=== PATIENT | female | born 1950 | race Caucasian/White ===

== ENCOUNTER → 2017-08-31 | Outpatient (CLI) | payer OTHER | END | disposition home or self-care (01) | LOC: KCIC 11:13 | DX: S22.43XD Multiple fractures of ribs, bilateral, subsequent encounter for fracture with routine healing (principal); J98.11 Atelectasis; X58.XXXD Exposure to other specified factors, subsequent encounter | CPT/HCPCS: 71046; 71110 ==

== ENCOUNTER → 2018-03-09 | Outpatient (CLI) | payer BC ==
--- NOTE | 2018-03-09 16:25 | KCIC ---
3 view left knee study Clinical indications: Chronic left knee pain. FINDINGS: No acute fracture or dislocation or osteolytic process is evident. There is severe joint space narrowing and moderate spurring spurring and subchondral sclerosis of the medial tibiofemoral joint compartment. There is mild spurring and joint space narrowing of the lateral tibial femoral joint compartment. There is prominent spurring and moderate joint space narrowing of the patellofemoral joint compartment. IMPRESSION: Tricompartmental primary degenerative osteoarthritis of the left knee most severely involving the medial tibiofemoral joint compartment. Electronically signed by: Ashu Gomez MD (03/09/2018 4:22 PM) [facility]
== END | disposition home or self-care (01) ==
LOC: KCIC 12:59
PROVIDERS: ATTEND Family Medicine
DX: M17.12 Unilateral primary osteoarthritis, left knee (principal)
CPT/HCPCS: 73562

== ENCOUNTER → 2018-04-09 | Outpatient (CLI) | payer BC ==
[~2018-04-09] MED LIST: DICL100G18 TP; OMEP20TA8 PO
--- NOTE | 2018-04-09 09:46 | CARD ---
MR#: [id number] Date of Study: 04/09/2018 Ordering Physician: CHANDA KUMAR, Referring Physician: CHANDA KUMAR Tech: Glenna Bray ANDREA APPROVED REPORT EXAM: Two-dimensional and M-mode echocardiogram with Doppler and color Doppler. Other Information Quality : AverageHR: 70bpm Rhythm : NSR INDICATION Dyspnea 2D DIMENSIONS IVSd1.0 (0.7-1.1cm)Aortic Root(2D)3.0 (2.0-3.7cm) LVDd4.8 (3.9-5.9cm)LVOT Diameter2.0 (1.8-2.4cm) PWd1.0 (0.7-1.1cm)LVDs3.4 (2.5-4.0cm) FS (%) 28.0 %SV57.8 ml LVEF(%)54.1 (>50%) Aortic Valve AoV Peak Bill.144.8cm/sAoV VTI27.7cm AO Peak GR.8.4mmHgLVOT Peak Bill.123.8cm/s AO Mean GR.5mmHgAVA (VMAX)2.79cm2 JEFF (VTI)2.70cm2 Mitral Valve MV E Czyxdjwo35.2cm/sMV E Peak Gr.2mmHg MV DECEL [id number] A Ohqjijfq56.4cm/s MV E Mean Gr.1mmHgE/A Ratio0.5 MV A [id number] Pulmonary Valve PV Peak Sjeojmqf84.7cm/s Tricuspid Valve TR P. Tbvbhodn416xk/sRAP QHPWCRFH1ozQd TR Peak Gr.9pcQnKSBD22slRh LEFT VENTRICLE The left ventricle is normal size. There is normal left ventricular wall thickness. The left ventricu lar systolic function is normal. The Ejection Fraction is 55-60%. There is normal LV segmental wall m otion. Transmitral Doppler flow pattern is Grade I-abnormal relaxation pattern. RIGHT VENTRICLE The right ventricle is normal size. There is normal right ventricular wall thickness. The right ventr icular systolic function is normal. ATRIA The left atrium size is normal. The right atrium size is normal. The interatrial septum is intact wit h no evidence for an atrial septal defect or patent foramen ovale as noted on 2-D or Doppler imaging. AORTIC VALVE The aortic valve is thickened but opens well. Doppler and Color Flow revealed no significant aortic r egurgitation. There is no significant aortic valvular stenosis. MITRAL VALVE The mitral valve is normal in structure and function. There is no evidence of mitral valve prolapse. There is no mitral valve stenosis. Doppler and Color Flow revealed no mitral valve regurgitation note d. TRICUSPID VALVE The tricuspid valve is normal in structure and function. Doppler and Color Flow revealed trace tricus pid regurgitation. The PA pressure was estimated at 19 mmHg. There is no tricuspid valve prolapse or vegetation. There is no tricuspid valve stenosis. PULMONIC VALVE The pulmonary valve is normal in structure and function. Doppler and Color Flow revealed no pulmonic valvular regurgitation. There is no pulmonic valvular stenosis. GREAT VESSELS The aortic root is normal in size. The ascending aorta is normal in size. PERICARDIAL EFFUSION There is no evidence of significant pericardial effusion. Critical Notification Critical Value: No <Conclusion> The left ventricular systolic function is normal. The Ejection Fraction is 55-60%. There is normal LV segmental wall motion. Transmitral Doppler flow pattern is Grade I-abnormal relaxation pattern. Doppler and Color Flow revealed trace tricuspid regurgitation. The PA pressure was estimated at 19 mmHg. There is no evidence of significant pericardial effusion. Signed by : Chanda Kumar, Electronically Approved : 04/09/2018 09:44:35
== END | disposition home or self-care (01) ==
LOC: ECHO 08:10
PROVIDERS: ATTEND Internal Medicine Cardiovascular Disease
DX: R06.09 Other forms of dyspnea (principal); I50.30 Unspecified diastolic (congestive) heart failure
CPT/HCPCS: 93306

== ENCOUNTER 2020-01-24 11:16 | Emergency (ER) | payer BC, MEDICARE ==
[~2020-01-24] VITALS: Ht 162.6 cm; Wt 125.0 kg
[~2020-01-24 11:16] MED LIST changes: -DICL100G18 TP; +DICL100G54 TP
[2020-01-24] MEDS ORDERED: SERT50TA PO (12:24)
[2020-01-24] MEDS ORDERED: ATOR40TA59 PO (12:24)
[2020-01-24] MEDS ORDERED: VALS320T2 PO (12:27)
[2020-01-24] MEDS ORDERED: BACTRIM DS PO (12:27)
[2020-01-24 12:49] LABS: BASO % 0 % (0-3); EOS % 0 % (0-3); HEMATOCRIT 40.5 % (36.0-47.0); HEMOGLOBIN 13.5 g/dL (12.0-15.5); LYMPH # 0.5 x10^3/uL (1.0-4.8); LYMPH % 11 % (24-48); MEAN CORPUSCULAR HEMOGLOBIN 30 pg (25-35); MEAN CORPUSCULAR HGB CONC 33 g/dL (31-37); MEAN CORPUSCULAR VOLUME 90 fL (79-100); MONO # 0.3 x10^3/uL (0.0-1.1); MONO % 6 % (0-9); NEUT # 3.7 x10^3/uL (1.8-7.7); NEUT % 82 % (31-73); PLATELET COUNT 153 x10^3/uL (140-400); RED BLOOD COUNT 4.49 x10^6/uL (3.50-5.40); RED CELL DISTRIBUTION WIDTH 14.5 % (11.5-14.5); WHITE BLOOD COUNT 4.5 x10^3/uL (4.0-11.0)
--- NOTE | 2020-01-24 13:50 | RAD ---
CHEST AP ONLY History: Reason: COUGH / Spl. Instructions: / History: Comparison: August 31, 2017 Findings: Low lung volumes. Patchy left basilar opacities. No pleural effusion. No pneumothorax. Portable technique accentuates cardiac size. Bilateral glenohumeral DJD, left greater than right. Impression: 1. Low lung volumes with patchy left basilar opacity, may represent atelectasis or consolidation. If persistent clinical concern, PA and lateral view the chest can better assess. Electronically signed by: Andrey Reeder DO (01/24/2020 1:47 PM) [id number]
[2020-01-24 14:16] LABS: CALCIUM 8.4 mg/dL (8.5-10.1); CREATININE 0.8 mg/dL (0.6-1.0); GFR 71.5; POTASSIUM 3.6 mmol/L (3.5-5.1)
[2020-01-24 14:23] LABS: ALBUMIN 3.5 g/dL (3.4-5.0); TOTAL BILIRUBIN 0.3 mg/dL (0.2-1.0); TOTAL PROTEIN 6.9 g/dL (6.4-8.2)
[2020-01-24 14:30] LABS: BILIRUBIN,URINE NEGATIVE (NEG); CLARITY,URINE CLOUDY; COLOR,URINE YELLOW; NITRITE,URINE NEGATIVE (NEG); PH,URINE 7.5 (<5.0-8.0); PROTEIN,URINE NEGATIVE (NEG-TRACE)
[2020-01-24 14:46] LABS: BACTERIA,URINE FEW /HPF (0-FEW); SQUAMOUS EPITHELIAL CELL,UR FEW /LPF
[2020-01-24] MEDS ORDERED: IV NORMAL SALINE 1000ML BAG 1,000 ML IV ONE (15:00)
[2020-01-24] MEDS ORDERED: ONDA4TAB7 PO (15:32)
--- NOTE | 2020-01-24 15:32 | PHYS DOC ---
Past Medical History Past Medical History: Depression, High Cholesterol, Hypertension Smoking Status: Never Smoker Alcohol Use: None General Adult EDM: Chief Complaint: ABDOMINAL PAIN HPI: HPI: Patient is a 69 year old female who presented to ER today for evaluation of cough congestion nausea vomiting and diarrhea for about 5 days. Patient was seen by her family doctor yesterday, COVID-19 test was performed but the result was not available yet. Patient denies any fever. Patient denies any abdominal pain. Patient denies being exposed to anybody who tested positive for COVID-19. Patient denies any blood in her stool. Patient denies any chest pain, no trouble breathing. Review of Systems: Review of Systems: Constitutional: Denies fever or chills. [] Eyes: Denies change in visual acuity. [] HENT: Denies nasal congestion or sore throat. [] Respiratory: Positive for cough, no trouble breathing. Cardiovascular: Denies chest pain or edema. [] GI: Positive for nausea vomiting diarrhea, no abdominal pain : Denies dysuria. [] Musculoskeletal: Denies back pain or joint pain. [] Integument: Denies rash. [] Neurologic: Denies headache, focal weakness or sensory changes. [] Endocrine: Denies polyuria or polydipsia. [] Lymphatic: Denies swollen glands. [] Psychiatric: Denies depression or anxiety. [] Heart Score: Risk Factors: Risk Factors: DM, Current or recent (<one month) smoker, HTN, HLP, family history of CAD, obesity. Risk Scores: Score 0 - 3: 2.5% MACE over next 6 weeks - Discharge Home Score 4 - 6: 20.3% MACE over next 6 weeks - Admit for Clinical Observation Score 7 - 10: 72.7% MACE over next 6 weeks - Early Invasive Strategies Allergies: Allergies: Allergies Coded Allergies Type Severity Reaction Last Updated Verified naproxen Allergy Intermediate ITCH, NEAR SYNCOPE 04/05/18 No tramadol Allergy Intermediate ITCH/RASH 04/05/18 Yes metronidazole Allergy Mild STOMACH UPSET 04/05/18 No sucralfate Allergy Mild ITCH, RASH 04/05/18 No acetaminophen Adverse Reaction Mild Nausea 04/05/18 Yes Uncoded Allergies Type Severity Reaction Last Updated Verified DARK CHOCOLATE Allergy Mild ITCH, NEAR SYNCOPE 04/05/18 Physical Exam: PE: Constitutional: Well developed, well nourished, no acute distress, non-toxic appearance. [] HENT: Normocephalic, atraumatic, bilateral external ears normal, oropharynx moist, no oral exudates, nose normal. [] Eyes: PERRLA, EOMI, conjunctiva normal, no discharge. [] Neck: Normal range of motion, no tenderness, supple, no stridor. [] Cardiovascular:Heart rate regular rhythm, no murmur [] Lungs & Thorax: Bilateral breath sounds clear to auscultation [] Abdomen: Bowel sounds normal, soft, no tenderness, no masses, no pulsatile mas ses. [] Skin: Warm, dry, no erythema, no rash. [] Back: No tenderness, no CVA tenderness. [] Extremities: No tenderness, no cyanosis, no clubbing, ROM intact, no edema. [] Neurologic: Alert and oriented X 3, normal motor function, normal sensory function, no focal deficits noted. [] Psychologic: Affect normal, judgement normal, mood normal. [] Current Patient Data: Labs: Laboratory Tests Test 01/24/20 12:40 01/24/20 13:45 01/24/20 14:25 White Blood Count 4.5 x10^3/uL (4.0-11.0) Red Blood Count 4.49 x10^6/uL (3.50-5.40) Hemoglobin 13.5 g/dL (12.0-15.5) Hematocrit 40.5 % (36.0-47.0) Mean Corpuscular Volume 90 fL (79-100) Mean Corpuscular Hemoglobin 30 pg (25-35) Mean Corpuscular Hemoglobin Concent 33 g/dL (31-37) Red Cell Distribution Width 14.5 % (11.5-14.5) Platelet Count 153 x10^3/uL (140-400) Neutrophils (%) (Auto) 82 % (31-73) H Lymphocytes (%) (Auto) 11 % (24-48) L Monocytes (%) (Auto) 6 % (0-9) Eosinophils (%) (Auto) 0 % (0-3) Basophils (%) (Auto) 0 % (0-3) Neutrophils # (Auto) 3.7 x10^3/uL (1.8-7.7) Lymphocytes # (Auto) 0.5 x10^3/uL (1.0-4.8) L Monocytes # (Auto) 0.3 x10^3/uL (0.0-1.1) Eosinophils # (Auto) 0.0 x10^3/uL (0.0-0.7) Basophils # (Auto) 0.0 x10^3/uL (0.0-0.2) Sodium Level 139 mmol/L (136-145) Potassium Level 3.6 mmol/L (3.5-5.1) Chloride Level 104 mmol/L (98-107) Carbon Dioxide Level 27 mmol/L (21-32) Anion Gap 8 (6-14) Blood Urea Nitrogen 14 mg/dL (7-20) Creatinine 0.8 mg/dL (0.6-1.0) Estimated GFR (Cockcroft-Gault) 71.5 BUN/Creatinine Ratio 18 (6-20) Glucose Level 95 mg/dL (70-99) Calcium Level 8.4 mg/dL (8.5-10.1) L Total Bilirubin 0.3 mg/dL (0.2-1.0) Aspartate Amino Transferase (AST) 20 U/L (15-37) Alanine Aminotransferase (ALT) 25 U/L (14-59) Alkaline Phosphatase 119 U/L (46-116) H Total Protein 6.9 g/dL (6.4-8.2) Albumin 3.5 g/dL (3.4-5.0) Albumin/Globulin Ratio 1.0 (1.0-1.7) Lipase 128 U/L (73-393) Urine Collection Type Void Urine Color Yellow Urine Clarity Cloudy Urine pH 7.5 (<5.0-8.0) Urine Specific [place] 1.010 (1.000-1.030) Urine Protein Negative mg/dL (NEG-TRACE) Urine Glucose (UA) Negative mg/dL (NEG) Urine Ketones (Stick) 15 mg/dL (NEG) Urine Blood Trace (NEG) Urine Nitrite Negative (NEG) Urine Bilirubin Negative (NEG) Urine Urobilinogen Dipstick 1.0 mg/dL (0.2 mg/dL) Urine Leukocyte Esterase Trace (NEG) Urine RBC 6-10 /HPF (0-2) Urine WBC 5-10 /HPF (0-4) Urine Squamous Epithelial Cells Few /LPF Urine Bacteria Few /HPF (0-FEW) Urine Mucus Slight /LPF Laboratory Tests 01/24/20 12:40 Laboratory Tests 01/24/20 13:45 Vital Signs: Vital Signs Date Time Temp Pulse Resp B/P (MAP) Pulse Ox O2 Delivery O2 Flow Rate FiO2 01/24/20 12:10 98.0 82 11 145/73 (97) 96 Room Air 98.0 EKG: EKG: [] Radiology/Procedures: Radiology/Procedures: [][facility] [address] [place] [address] IMAGING REPORT Signed PATIENT: MICHAEL AKBAR ACCOUNT: [id number] : 1950 LOCATION: ER AGE: 69 SEX: F EXAM STATUS: REG ER ORD. PHYSICIAN: DEWAYNE ANNE DO REASON: COUGH PROCEDURE: CHEST AP ONLY CHEST AP ONLY History: Reason: COUGH / Spl. Instructions: / History: Comparison: August 31, 2017 Findings: Low lung volumes. Patchy left basilar opacities. No pleural effusion. No pneumothorax. Portable technique accentuates cardiac size. Bilateral glenohumeral DJD, left greater than right. Impression: 1. Low lung volumes with patchy left basilar opacity, may represent atelectasis or consolidation. If persistent clinical concern, PA and lateral view the chest can better assess. Electronically signed by: Andrey Reeder DO (01/24/2020 1:47 PM) [id number] DICTATED and SIGNED BY: ANDREY REEDER DO DATE: 01/24/20 1347 Course & Med Decision Making: Course & Med Decision Making Pertinent Labs and Imaging studies reviewed. (See chart for details) Patient is a 69-year-old female who was evaluated in the ER due to nausea vomiting, cough. Patient already had COVID-19 tests yesterday, result is p ending at this time. Patient will be discharged home, she was instructed to quarantine herself at home until she hears back from her doctor about her lab results. Patient was given information about Covic 19 infection. Dragon Disclaimer: Dragon Disclaimer: This electronic medical record was generated, in whole or in part, using a voice recognition dictation system. Departure Departure Impression: Primary Impression: Nausea & vomiting Additional Impression: Viral syndrome Disposition: HOME, SELF-CARE Condition: IMPROVED Referrals: ALEKS FREGOSO MD (PCP) please follow up with your doctor this week Patient Instructions: Nausea and Vomiting Additional Instructions: Thank you for visiting our Emergency Department. We appreciate you trusting us with your care. If any additional problems come up don't hesitate to return to visit us. Please follow up with your primary care provider so they can plan additional care if needed and know about the problem that you had. If symptoms worsen come back to the Emergency Department. Any concerning symptoms that start such as chest pain, shortness of air, weakness or numbness on one side of the body, running high fevers or any other concerning symptoms return to the ER. Scripts Ondansetron Hcl (ZOFRAN) 4 Mg Tablet 1 TAB PO Q6HRS PRN for NAUSEA, #20 TAB Prov: DEWAYNE ANNE DO 01/24/20 Justicifation of Admission Dx: Justifications for Admission: Justification of Admission Dx: N/A DEWAYNE ANNE DO Jan 24, 2020 15:32
[2020-01-24 15:35] VITALS: BP 155/80
[2020-01-25] MEDS ORDERED: GABA600T7 PO (05:46)
== END 2020-01-24 15:57 | disposition home or self-care (01) ==
LOC: ER 11:16
DX: B34.9 Viral infection, unspecified (principal); R11.2 Nausea with vomiting, unspecified; R19.7 Diarrhea, unspecified; R05 Cough; R09.81 Nasal congestion; E78.00 Pure hypercholesterolemia, unspecified; F32.9 Major depressive disorder, single episode, unspecified; I10 Essential (primary) hypertension; Z88.8 Allergy status to other drugs, medicaments and biological substances; Z91.018 Allergy to other foods
CPT/HCPCS: 36415; 71045; 80053; 81001; 83690; 85025; 87086; 96360; 99285; J7030

== ENCOUNTER 2020-01-24 23:02 | Inpatient (IN) | payer MEDICARE ==
[~2020-01-24] VITALS: Ht 162.6 cm; Wt 124.5 kg
[~2020-01-24 23:02] MED LIST changes: +ATOR40TA59 PO; +BACTRIM DS PO; +ONDA4TAB7 PO; +SERT50TA PO; +VALS320T2 PO
--- NOTE | 2020-01-25 00:41 | PHYS DOC ---
Past Medical History Past Medical History: Depression, High Cholesterol, Hypertension Smoking Status: Never Smoker Alcohol Use: None General Adult EDM: Chief Complaint: ABDOMINAL PAIN HPI: HPI: Patient is a 69 year old female who was seen in the ER on 01/23 for similar symptoms. Re-presents this evening with continued nausea vomiting and had diarrhea in her bed. Patient has been sick since and has had a cough without shortness of breath she does complain of myalgias but no fever or chills. Patient has had multiple episodes of nausea vomiting and diarrhea which continue. Patient saw her doctor who did a outpatient COVID-19 test and the results are pending. Patient was found to have UTI and started on Bactrim. Patient now endorsing nonradiating left sided abdominal pain. Pain is decided is moderate and worse with palpation. Review of Systems: Review of Systems: Constitutional: Denies fever or chills. [] Eyes: Denies change in visual acuity. [] HENT: Denies nasal congestion or sore throat. [] Respiratory: Complains of cough [] Cardiovascular: Denies chest pain or edema. [] GI: Complains of abdominal pain, nausea, vomiting, diarrhea : Denies dysuria. [] Musculoskeletal: Complains of diffuse myalgias Integument: Denies rash. [] Neurologic: Denies headache, focal weakness or sensory changes. But has generalized weakness Endocrine: Denies polyuria or polydipsia. [] Lymphatic: Denies swollen glands. [] Psychiatric: Denies depression or anxiety. [] Heart Score: Risk Factors: Risk Factors: DM, Current or recent (<one month) smoker, HTN, HLP, family history of CAD, obesity. Risk Scores: Score 0 - 3: 2.5% MACE over next 6 weeks - Discharge Home Score 4 - 6: 20.3% MACE over next 6 weeks - Admit for Clinical Observation Score 7 - 10: 72.7% MACE over next 6 weeks - Early Invasive Strategies Current Medications: Current Medications Medications (Trade) Dose Ordered Sig/Haley Start Time Stop Time Status Last Admin Dose Admin Ondansetron HCl (Zofran) 4 mg 1X ONCE 01/25/20 01:00 01/25/20 01:01 Sodium Chloride 1,000 ml @ 1,000 mls/hr Q1H 01/25/20 01:00 01/25/20 01:59 Allergies: Allergies: Allergies Coded Allergies Type Severity Reaction Last Updated Verified chocolate flavor Allergy Intermediate ITCH, NEAR SYNCOPE 01/25/20 Yes naproxen Allergy Intermediate ITCH, NEAR SYNCOPE 04/05/18 No tramadol Allergy Intermediate ITCH/RASH 04/05/18 Yes metronidazole Allergy Mild STOMACH UPSET 04/05/18 No sucralfate Allergy Mild ITCH, RASH 04/05/18 No acetaminophen Adverse Reaction Mild Nausea 04/05/18 Yes Physical Exam: PE: Constitutional: Well developed, well nourished, mild distress HENT: Normocephalic, atraumatic, bilateral external ears normal, no trismus nose normal. [] Eyes: PERRLA, EOMI, conjunctiva normal, no discharge. [] Neck: Normal range of motion, no tenderness, supple, no stridor. [] Cardiovascular:Heart rate regular rhythm, Lungs & Thorax: No respiratory distress Abdomen: Abdomen soft with no distention mild tenderness on the left side without guarding or rebound no pulsatile masses Skin: Warm, dry, no erythema, no rash. [] Back: No tenderness, no CVA tenderness. [] Extremities: No tenderness, no cyanosis, no clubbing, ROM intact, no edema. [] Neurologic: Alert and oriented X 3, normal motor function, normal sensory function, no focal deficits noted. [] Psychologic: Anxious Current Patient Data: Labs: Laboratory Tests Test 01/25/20 01:35 01/25/20 03:30 White Blood Count 4.8 x10^3/uL Red Blood Count 4.51 x10^6/uL Hemoglobin 13.7 g/dL Hematocrit 40.9 % Mean Corpuscular Volume 91 fL Mean Corpuscular Hemoglobin 30 pg Mean Corpuscular Hemoglobin Concent 33 g/dL Red Cell Distribution Width 14.6 % Platelet Count 159 x10^3/uL Neutrophils (%) (Auto) 76 % Lymphocytes (%) (Auto) 15 % Monocytes (%) (Auto) 8 % Eosinophils (%) (Auto) 1 % Basophils (%) (Auto) 0 % Neutrophils # (Auto) 3.6 x10^3/uL Lymphocytes # (Auto) 0.7 x10^3/uL Monocytes # (Auto) 0.4 x10^3/uL Eosinophils # (Auto) 0.0 x10^3/uL Basophils # (Auto) 0.0 x10^3/uL Sodium Level 140 mmol/L Potassium Level 3.9 mmol/L Chloride Level 103 mmol/L Carbon Dioxide Level 25 mmol/L Anion Gap 12 Blood Urea Nitrogen 17 mg/dL Creatinine 0.9 mg/dL Estimated GFR (Cockcroft-Gault) 62.5 BUN/Creatinine Ratio 19 Glucose Level 109 mg/dL Calcium Level 8.8 mg/dL Total Bilirubin 0.2 mg/dL Aspartate Amino Transf (AST/SGOT) 24 U/L Alanine Aminotransferase (ALT/SGPT) 25 U/L Alkaline Phosphatase 122 U/L Total Protein 7.1 g/dL Albumin 3.6 g/dL Albumin/Globulin Ratio 1.0 Lipase 141 U/L Urine Collection Type U cath Urine Color Yellow Urine Clarity Clear Urine pH 7.0 Urine Specific [place] >=1.030 Urine Protein Negative mg/dL Urine Glucose (UA) Negative mg/dL Urine Ketones (Stick) 15 mg/dL Urine Blood Negative Urine Nitrite Negative Urine Bilirubin Negative Urine Urobilinogen Dipstick 1.0 mg/dL Urine Leukocyte Esterase Negative Urine RBC 0 /HPF Urine WBC Occ /HPF Urine Squamous Epithelial Cells Occ /LPF Urine Bacteria 0 /HPF Urine Mucus Slight /LPF Current Medications Medications (Trade) Dose Ordered Sig/Haley Route PRN Reason Start Time Stop Time Status Last Admin Dose Admin Sodium Chloride 1,000 ml @ 1,000 mls/hr Q1H IV 01/25/20 01:00 01/25/20 01:59 DC 01/25/20 03:38 Ondansetron HCl (Zofran) 4 mg 1X ONCE IVP 01/25/20 01:00 01/25/20 01:01 DC 01/25/20 01:39 Iohexol (Omnipaque 300 Mg/ml) 75 ml 1X ONCE IV 01/25/20 01:30 01/25/20 01:31 DC 01/25/20 01:52 Info (CONTRAST GIVEN -- Rx MONITORING) 1 each PRN DAILY PRN MC SEE COMMENTS 01/25/20 01:15 01/27/20 01:14 Vital Signs: Vital Signs Date Time Temp Pulse Resp B/P (MAP) Pulse Ox O2 Delivery O2 Flow Rate FiO2 01/24/20 23:15 98.2 89 20 142/64 (90) 97 Room Air 98.2 EKG: EKG: [] Radiology/Procedures: Radiology/Procedures: [][facility] [address] [place] [address] IMAGING REPORT Signed PATIENT: MICHAEL AKBAR ACCOUNT: [id number] : 1950 LOCATION: ER AGE: 69 SEX: F EXAM STATUS: REG ER ORD. PHYSICIAN: ABIEL HDZ MD REASON: ABD PAIN PROCEDURE: CT ABD PELV W/ IV CONTRST ONLY EXAM: CT Abdomen and Pelvis with IV contrast INDICATION: Reason: ABD PAIN / Spl. Instructions: COVID PRECAUTIONS / History: TECHNIQUE: Multi-detector row CT images were acquired from the lung bases through the abdomen and pelvis with the use of IV contrast. Sagittal and coronal images were acquired from the transaxial data. All CT scans performed at this facility utilize dose optimization techniques as appropriate to the exam, including the following: Automated exposure control and adjustment of the mA and/or KV according to patient size (this includes techniques or standardized protocols for targeted exams where dose is indication/reason for exam). IV CONTRAST: Administered ORAL CONTRAST: Not administered COMPARISON: None FINDINGS: LOWER CHEST: Moderate hiatal hernia. Patchy groundglass opacities in the lower lobes bilaterally LIVER: Unremarkable BILIARY SYSTEM: Gallbladder contains a noncalcified 3 cm stone near the fundus.. Bile ducts are not dilated. PANCREAS: Unremarkable SPLEEN: Unremarkable ADRENALS: Unremarkable KIDNEYS & URETERS: Unremarkable BLADDER: Unremarkable REPRODUCTIVE ORGANS: 2.6 cm calcified fibroid in the right uterine fundus. GASTROINTESTINAL: Hiatal hernia and scattered colonic diverticuli. Otherwise the stomach, small bowel, and colon are unremarkable. The appendix is normal. MESENTERY/PERITONEUM/RETROPERITONEUM: Unremarkable VASCULAR: Unremarkable LYMPH NODES: No adenopathy OSSEOUS & SOFT TISSUES: No acute or aggressive appearing osseous lesions. Anterolisthesis at L4-L5 likely results in some moderate degree of central canal and bilateral foraminal stenosis. IMPRESSION: 1. Patchy groundglass opacities in the lower lobes could reflect atypical pneumonia in the appropriate clinical context. 2. Gallbladder contains a 3 cm calcified stone. Correlate for any evidence of acute cholecystitis. 3. Moderate size hiatal hernia. 4. Otherwise no acute findings in the abdomen or pelvis on contrast enhanced CT. Electronically signed by: Stacey Camacho MD (01/25/2020 2:15 AM) [facility] DICTATED and SIGNED BY: STACEY CAMACHO MD DATE: 01/25/20214 Course & Med Decision Making: Course & Med Decision Making Pertinent Labs and Imaging studies reviewed. (See chart for details) [] 69-year-old female presents with cough and nausea vomiting diarrhea. Symptoms concerning for COVID-19 based on her symptoms as well as her x-ray findings. Patient unable to keep down fluids. Patient will be admitted for IV hydration. Discussed with Dr. Whitt who will admit Dragon Disclaimer: Dragraquel Disclaimer: This electronic medical record was generated, in whole or in part, using a voice recognition dictation system. Departure Departure Impression: Primary Impression: Nausea and vomiting Additional Impression: Diarrhea Disposition: ADMITTED INPATIENT Admitting Physician: Shaheed Whitt Condition: STABLE Referrals: ALEKS FREGOSO MD (PCP) Justicifation of Admission Dx: Justifications for Admission: Justification of Admission Dx: Yes ABIEL HDZ MD Jan 25, 2020 00:41
[2020-01-25] MEDS ORDERED: ONDANSETRON PF 4 MG/2 ML VIAL. IVP ONE (01:00)
[2020-01-25] MEDS ORDERED: IV NORMAL SALINE 1000ML BAG 1,000 ML IV SCH (01:00)
[2020-01-25] MEDS ORDERED: CONTRAST GIVEN. MC PRN (01:15)
[2020-01-25] MEDS ORDERED: IOHEXOL 300 MG/ML 100ML VIAL. IV ONE (01:30)
[2020-01-25 01:46] LABS: BASO % 0 % (0-3); EOS % 1 % (0-3); HEMATOCRIT 40.9 % (36.0-47.0); HEMOGLOBIN 13.7 g/dL (12.0-15.5); LYMPH # 0.7 x10^3/uL (1.0-4.8); LYMPH % 15 % (24-48); MEAN CORPUSCULAR HEMOGLOBIN 30 pg (25-35); MEAN CORPUSCULAR HGB CONC 33 g/dL (31-37); MEAN CORPUSCULAR VOLUME 91 fL (79-100); MONO # 0.4 x10^3/uL (0.0-1.1); MONO % 8 % (0-9); NEUT # 3.6 x10^3/uL (1.8-7.7); NEUT % 76 % (31-73); PLATELET COUNT 159 x10^3/uL (140-400); RED BLOOD COUNT 4.51 x10^6/uL (3.50-5.40); RED CELL DISTRIBUTION WIDTH 14.6 % (11.5-14.5); WHITE BLOOD COUNT 4.8 x10^3/uL (4.0-11.0)
[2020-01-25 01:55] LABS: CALCIUM 8.8 mg/dL (8.5-10.1); CREATININE 0.9 mg/dL (0.6-1.0); GFR 62.5; POTASSIUM 3.9 mmol/L (3.5-5.1)
[2020-01-25 02:01] LABS: ALBUMIN 3.6 g/dL (3.4-5.0); TOTAL BILIRUBIN 0.2 mg/dL (0.2-1.0); TOTAL PROTEIN 7.1 g/dL (6.4-8.2)
--- NOTE | 2020-01-25 02:18 | RAD ---
EXAM: CT Abdomen and Pelvis with IV contrast INDICATION: Reason: ABD PAIN / Spl. Instructions: COVID PRECAUTIONS / History: TECHNIQUE: Multi-detector row CT images were acquired from the lung bases through the abdomen and pelvis with the use of IV contrast. Sagittal and coronal images were acquired from the transaxial data. All CT scans performed at this facility utilize dose optimization techniques as appropriate to the exam, including the following: Automated exposure control and adjustment of the mA and/or KV according to patient size (this includes techniques or standardized protocols for targeted exams where dose is indication/reason for exam). IV CONTRAST: Administered ORAL CONTRAST: Not administered COMPARISON: None FINDINGS: LOWER CHEST: Moderate hiatal hernia. Patchy groundglass opacities in the lower lobes bilaterally LIVER: Unremarkable BILIARY SYSTEM: Gallbladder contains a noncalcified 3 cm stone near the fundus.. Bile ducts are not dilated. PANCREAS: Unremarkable SPLEEN: Unremarkable ADRENALS: Unremarkable KIDNEYS & URETERS: Unremarkable BLADDER: Unremarkable REPRODUCTIVE ORGANS: 2.6 cm calcified fibroid in the right uterine fundus. GASTROINTESTINAL: Hiatal hernia and scattered colonic diverticuli. Otherwise the stomach, small bowel, and colon are unremarkable. The appendix is normal. MESENTERY/PERITONEUM/RETROPERITONEUM: Unremarkable VASCULAR: Unremarkable LYMPH NODES: No adenopathy OSSEOUS & SOFT TISSUES: No acute or aggressive appearing osseous lesions. Anterolisthesis at L4-L5 likely results in some moderate degree of central canal and bilateral foraminal stenosis. IMPRESSION: 1. Patchy groundglass opacities in the lower lobes could reflect atypical pneumonia in the appropriate clinical context. 2. Gallbladder contains a 3 cm calcified stone. Correlate for any evidence of acute cholecystitis. 3. Moderate size hiatal hernia. 4. Otherwise no acute findings in the abdomen or pelvis on contrast enhanced CT. Electronically signed by: Grace Camacho MD (01/25/2020 2:15 AM) [facility] [place]
[2020-01-25] MEDS ORDERED: methylPREDNISolone SOD SUCC PF 125 MG/2 ML VIAL. ONE (03:15)
[2020-01-25] MEDS ORDERED: IV NORMAL SALINE 1000ML BAG 1,000 ML IV ONE (03:30)
[2020-01-25 03:38] LABS: BILIRUBIN,URINE NEGATIVE (NEG); CLARITY,URINE CLEAR; COLOR,URINE YELLOW; NITRITE,URINE NEGATIVE (NEG); PROTEIN,URINE NEGATIVE (NEG-TRACE)
[2020-01-25 03:49] LABS: BACTERIA,URINE 0 /HPF (0-FEW); RBC,URINE 0 /HPF (0-2); SQUAMOUS EPITHELIAL CELL,UR OCC /LPF; WBC,URINE OCC /HPF (0-4)
[2020-01-25 04:43] VITALS: BP 180/76
[2020-01-25] MEDS ORDERED: GABA600T7 PO (05:46)
[2020-01-25 07:10] VITALS: BP 147/63
--- NOTE | 2020-01-25 08:34 | PDOC ---
Provider Note Provider Note [id number] Justicifation of Admission Dx: Justifications for Admission: Justification of Admission Dx: Yes GERALD GREY MD Jan 25, 2020 08:34
--- NOTE | 2020-01-25 08:45 | HP ---
ADMIT DATE: 01/25/2020 CHIEF COMPLAINT: Vomiting and diarrhea. HISTORY OF PRESENT ILLNESS: A 69-year-old white female who has been seen by Dr. Pizarro in the last 2-3 days for ongoing vomiting and diarrhea for about 1 week and dry cough and low-grade fever and malaise. She was seen in the ER twice on the day of admission and the second time admitted because of inability to maintain good p.o. intake and ongoing diarrhea. Diarrhea and vomiting have been nonbloody. She has not been exposed to anyone who has been ill. No recent new medications or known COVID exposure. Her COVID test is pending as of 2 days ago collection in the office. CT scan of the abdomen and pelvis and all laboratory studies were unremarkable in the ER. PAST MEDICAL HISTORY: Listed. HOME MEDICATIONS: Listed. ALLERGIES: LISTED TO METRONIDAZOLE, CARAFATE, and TRAMADOL. No other serious medical problems. SOCIAL HISTORY: She is single. She is a nonsmoker, nondrinker, and works in home healthcare. FAMILY HISTORY: Unremarkable. REVIEW OF SYSTEMS: No other specific complaints. No recent antibiotic use. OBJECTIVE: ENT: All within normal limits. NECK: No masses, nodes or bruits. LUNGS: Clear without tachypnea. CARDIOVASCULAR: Regular rate, mild tachycardia. No murmur. ABDOMEN: Soft and benign. Diffusely tender. No masses or guarding. EXTREMITIES: Good pedal and radial pulses. No joint or skin lesions or nail bed findings. NEUROLOGIC: Physiologic, nonfocal. She is oriented x 4. ASSESSMENT: Ongoing vomiting and diarrhea and dry cough consistent with some sort of viral syndrome. Mild infiltrates on chest x-ray certainly raised the question of COVID-19 infection. PLAN: Continue isolation, pending COVID results. IV fluids and supportive care for now. GERALD GREY MD DR: ELZBIETA/alvin JOB#: [id number] / [id number]
[2020-01-25] MEDS: ONDANSETRON PF 4 MG/2 ML VIAL. IV PRN (08:49)
[2020-01-25] MEDS: SERTRALINE 50 MG TABLET. PO SCH ×2 (08:49→11:38)
[2020-01-25] MEDS: GABAPENTIN 300 MG CAPSULE. PO SCH ×5 (08:49→19:35)
[2020-01-25] MEDS: PANTOPRAZOLE 40 MG TABLET.DR. PO SCH ×2 (08:49→11:38)
[2020-01-25] MEDS: POTASSIUM CL 20MEQ D5-0.45NACL 1,000 ML IV SCH ×2 (08:51→19:50)
[2020-01-25 11:11] VITALS: BP 119/60
[2020-01-25 15:04] VITALS: BP 142/65
--- NOTE | 2020-01-25 17:39 | NUR ---
SW following. Spoke with RN and reviewed chart. Pt form home. Pt on oral medications and room air. SW to follow as needed.
[2020-01-25 19:40] VITALS: BP 147/64
[2020-01-25 23:30] VITALS: BP 139/65
[2020-01-26] MEDS: ONDANSETRON PF 4 MG/2 ML VIAL. IV PRN (00:16)
[2020-01-26] MEDS: POTASSIUM CL 20MEQ D5-0.45NACL 1,000 ML IV SCH ×3 (04:58→20:52)
[2020-01-26 07:10] VITALS: BP 143/68
[2020-01-26] MEDS: ACETAMINOPHEN 325 MG TABLET. PO PRN ×2 (07:58→17:01)
[2020-01-26] MEDS: ONDANSETRON ODT 4 MG TAB.RAPDIS. PO PRN ×2 (07:59→18:28)
[2020-01-26] MEDS: SERTRALINE 50 MG TABLET. PO SCH (07:59)
[2020-01-26] MEDS: PANTOPRAZOLE 40 MG TABLET.DR. PO SCH (07:59)
--- NOTE | 2020-01-26 08:06 | PDOC ---
Provider Note Provider Note no temp, less nausea and no more diarrhea last 12 hrs- exam ok, abd nontender- has large gallstone but doubt gb related- recheck LFTs, continue iv fluid another day, covid pending Justicifation of Admission Dx: Justifications for Admission: Justification of Admission Dx: Yes GEARLD GREY MD Jan 26, 2020 08:06
[2020-01-26 11:11] LABS: DIRECT BILIRUBIN 0.1 mg/dL (0.0-0.2); TOTAL BILIRUBIN 0.2 mg/dL (0.2-1.0); TOTAL PROTEIN 6.1 g/dL (6.4-8.2)
[2020-01-26 11:22] VITALS: BP 133/66
[2020-01-26 15:00] VITALS: BP 124/67
--- NOTE | 2020-01-26 17:33 | NUR ---
SW following. Spoke with RN and reviewed chart. Pt from home. Pt on oral medications and room air. No SW needs per RN.
[2020-01-26 19:00] VITALS: BP 169/66
[2020-01-26 23:00] VITALS: BP 150/72
[2020-01-27 03:00] VITALS: BP 133/66
[2020-01-27 07:00] VITALS: BP 126/62
[2020-01-27] MEDS: POTASSIUM CL 20MEQ D5-0.45NACL 1,000 ML IV SCH (07:07)
--- NOTE | 2020-01-27 08:05 | PDOC ---
Provider Note Provider Note [id number] Justicifation of Admission Dx: Justifications for Admission: Justification of Admission Dx: Yes GERALD GREY MD Jan 27, 2020 08:05
--- NOTE | 2020-01-27 08:18 | DS ---
DATE OF DISCHARGE: 01/27/2020 HOSPITAL SUMMARY: A 69-year-old white female who was admitted from our office after a COVID test was done and results are pending for nausea, vomiting, diarrhea and persistent weakness. CBC and chemistry profile unremarkable. Repeat liver function tests were normal. Urine showed no evidence of infection with high specific gravity and CT scan showed a large 3 cm calcified gallstone and a moderate hiatal hernia, but no acute findings otherwise were present. She was given IV fluids throughout the hospital stay and has remained afebrile and the initial persistent vomiting subsided and she is able to hold down full liquid diet. We will move her to a regular diet this morning. Stop her IV fluids and she will be discharged later today if she is able to hold down adequate oral intake. FINAL DIAGNOSIS: Acute viral gastroenteritis. OPERATIONS, PROCEDURES, COMPLICATIONS, CONSULTATIONS: None. DISPOSITION: No new home meds. Advance diet slowly. Good fluid intake. We will contact her with results of COVID test when available and off work until week from Thursday, a total of 2 weeks. GERALD GREY MD DR: ELZBIETA/alvin JOB#: [id number] / [id number]
[2020-01-27] MEDS: ONDANSETRON ODT 4 MG TAB.RAPDIS. PO PRN (09:07)
[2020-01-27] MEDS: PANTOPRAZOLE 40 MG TABLET.DR. PO SCH (09:07)
[2020-01-27] MEDS: SERTRALINE 50 MG TABLET. PO SCH (09:07)
[2020-01-27] MEDS: ACETAMINOPHEN 325 MG TABLET. PO PRN (09:07)
[2020-01-27 11:00] VITALS: BP 138/80
[2020-01-27 15:00] VITALS: BP 134/60
--- NOTE | 2020-01-27 15:41 | NUR ---
SW following. Spoke with RN and reviewed chart. Pt from home. Pt on oral medications and room air. Pt to discharge home today with no SW needs per RN.
--- NOTE | 2020-01-27 15:57 | NUR ---
Pt decided to discharge tomorrow instead of today. Slightly nauseated after eating. Notification left for Dr Whitt.
--- NOTE | 2020-01-27 17:50 | NUR ---
Pt discharged to home with self care. Discharge instructions reviewed. She verbalized understanding.
== END 2020-01-27 17:50 | disposition home or self-care (01) | DRG 392 ==
LOC: ER 23:02 → 6 SOUTH 01-25 02:51
PROVIDERS: ADMIT Family Medicine; ATTEND Family Medicine
DX: A08.4 Viral intestinal infection, unspecified (principal); K44.9 Diaphragmatic hernia without obstruction or gangrene; K80.20 Calculus of gallbladder without cholecystitis without obstruction; E78.00 Pure hypercholesterolemia, unspecified; F32.9 Major depressive disorder, single episode, unspecified; R05 Cough; I10 Essential (primary) hypertension; Z88.1 Allergy status to other antibiotic agents; Z88.5 Allergy status to narcotic agent; Z88.8 Allergy status to other drugs, medicaments and biological substances
CPT/HCPCS: 36415; 74177; 80053; 80076; 81001; 83690; 85025; 96361; 96374; 99285; J2405; J3480; J7030; Q9967; G0378

== ENCOUNTER 2020-07-30 00:34 | Emergency (ER) | payer MEDICARE ==
[~2020-07-30] VITALS: Ht 162.6 cm; Wt 122.7 kg
[~2020-07-30 00:34] MED LIST changes: +GABA600T7 PO
[2020-07-30 00:52] LABS: BILIRUBIN,URINE NEGATIVE (NEG); CLARITY,URINE CLEAR; COLOR,URINE YELLOW; NITRITE,URINE NEGATIVE (NEG); PH,URINE 5.5 (<5.0-8.0); PROTEIN,URINE 30 mg/dL (NEG-TRACE)
[2020-07-30 01:11] LABS: BACTERIA,URINE FEW /HPF (0-FEW); RBC,URINE OCC /HPF (0-2); WBC,URINE >40 /HPF (0-4)
[2020-07-30] MEDS ORDERED: IBUPROFEN 400 MG TABLET. PO ONE (01:30)
[2020-07-30] MEDS ORDERED: NYST15CR2 TP (02:13)
[2020-07-30] MEDS ORDERED: CEPH500C PO (02:13)
--- NOTE | 2020-07-30 02:13 | PHYS DOC ---
Past Medical History Past Medical History: Depression, GERD, High Cholesterol, Hypertension Past Surgical History: No Surgical History Smoking Status: Never Smoker Alcohol Use: None Adult General Chief Complaint Chief Complaint: PAIN ON URINATION HPI HPI Patient is a 70 year old female the past medical history of GERD hypertension now presenting to the emergency department complaining of new onset of dysuria and vaginal pain. Patient states for the last week she has been having progressive sensation of burning when she urinates. Has developed sensation of suprapubic and right lower back pain. Patient demonstrates a history of chronic lower back pain. Denies any fever, chills, nausea, vomiting, dizziness or lightheadedness. Review of Systems Review of Systems Constitutional: Denies fever or chills [] Eyes: Denies change in visual acuity, redness, or eye pain [] HENT: Denies nasal congestion or sore throat [] Respiratory: Denies cough or shortness of breath [] Cardiovascular: No additional information not addressed in HPI [] GI: Denies abdominal pain, nausea, vomiting, bloody stools or diarrhea [] : Denies dysuria or hematuria [] Musculoskeletal: Denies back pain or joint pain [] Integument: Denies rash or skin lesions [] Neurologic: Denies headache, focal weakness or sensory changes [] Endocrine: Denies polyuria or polydipsia [] All other systems were reviewed and found to be within normal limits, except as documented in this note. Current Medications Current Medications Current Medications Medications (Trade) Dose Ordered Sig/Haley Start Time Stop Time Status Last Admin Dose Admin Ibuprofen (Motrin) 800 mg 1X ONCE 07/30/20 01:30 07/30/20 01:32 DC 07/30/20 01:30 800 MG Allergies Allergies Allergies Coded Allergies Type Severity Reaction Last Updated Verified chocolate flavor Allergy Intermediate ITCH, NEAR SYNCOPE 01/25/20 Yes naproxen Allergy Intermediate ITCH, NEAR SYNCOPE 01/26/20 Yes tramadol Allergy Intermediate ITCH/RASH 04/05/18 Yes metronidazole Allergy Mild STOMACH UPSET 01/26/20 Yes sucralfate Allergy Mild ITCH, RASH 01/26/20 Yes Physical Exam Physical Exam Constitutional: Well developed, well nourished, no acute distress, non-toxic appearance. [] HENT: Normocephalic, atraumatic, bilateral external ears normal, oropharynx moist, no oral exudates, nose normal. [] Eyes: PERRLA, EOMI, conjunctiva normal, no discharge. [] Neck: Normal range of motion, no tenderness, supple, no stridor. [] Cardiovascular:Heart rate regular rhythm, no murmur [] Lungs & Thorax: Bilateral breath sounds clear to auscultation [] Abdomen: Bowel sounds normal, soft, no tenderness, no masses, no pulsatile masses. [] Skin: Warm, dry, no erythema, no rash. [] Back: No tenderness, no CVA tenderness. [] : erythematous excoriated bilateral vulvar area, vaginal canal erythematous and tender Extremities: No tenderness, no cyanosis, no clubbing, ROM intact, no edema. [] Neurologic: Alert and oriented X 3, normal motor function, normal sensory function, no focal deficits noted. [] Psychologic: Affect normal, judgement normal, mood normal. [] Current Patient Data Vital Signs Vital Signs Date Time Temp Pulse Resp B/P (MAP) Pulse Ox O2 Delivery O2 Flow Rate FiO2 07/30/20 00:45 98.7 99 16 153/93 (113) 99 Room Air 98.7 Lab Values Laboratory Tests Test 07/30/20 00:47 Urine Collection Type Unknown Urine Color Yellow Urine Clarity Clear Urine pH 5.5 (<5.0-8.0) Urine Specific [place] >=1.030 (1.000-1.030) Urine Protein 30 mg/dL (NEG-TRACE) Urine Glucose (UA) Negative mg/dL (NEG) Urine Ketones (Stick) Negative mg/dL (NEG) Urine Blood Small (NEG) Urine Nitrite Negative (NEG) Urine Bilirubin Negative (NEG) Urine Urobilinogen Dipstick 1.0 mg/dL (0.2 mg/dL) Urine Leukocyte Esterase Large (NEG) Urine RBC Occ /HPF (0-2) Urine WBC >40 /HPF (0-4) Urine Squamous Epithelial Cells Mod /LPF Urine Bacteria Few /HPF (0-FEW) Urine Mucus Marked /LPF EKG EKG [] Radiology/Procedures Radiology/Procedures [] Course & Med Decision Making Course & Med Decision Making Pertinent Labs and Imaging studies reviewed. (See chart for details) 70F presenting with new onset of dysuria and evidence of external candidal infection. Will treat the patient with antibiotics for both of these presumed infections and plan for discharge home Janae Disclaimer Janae Disclaimer This electronic medical record was generated, in whole or in part, using a voice recognition dictation system. Departure Departure Impression: Primary Impression: Urinary tract infection Additional Impression: Vulval candidiasis Disposition: 01 DC HOME SELF CARE/HOMELESS Condition: GOOD Referrals: ALEKS FREGOSO MD (PCP) Patient Instructions: Urinary Tract Infection Additional Instructions: EMERGENCY DEPARTMENT GENERAL DISCHARGE INSTRUCTIONS Thank you for coming to [facility] Emergency Department (ED) today and trusting us with you care. We trust that you had a positive experience in our Emergency Department. If you wish to speak to the department management, you may call the Director at [phone]. YOUR FOLLOW UP INSTRUCTIONS ARE FOLLOWS: 1. Do you have a private Doctor? If you do not have a private doctor, please ask for a resource list of physicians or clinics that may be able to assist you with follow up care. 2. The Emergency Physicain has interpreted your x-rays. The X-Ray specialist will also review them. If there is a change in the findings, you will be notified in 48 hours when at all possible. 3. A lab test or culture has been done, your results will be reviewed and you will be notified if you need a change in treatment. ADDITIONAL INSTRUCTIONS AND INFORMATION: 1. Your care today has been supervised by a physician who is specially trained in emergency care. Many problems require more than one evaluation for a complete diagnosis and treatment. We recommend that you schedule your follow up appointment as recommended to ensure complete treatment of you illness or injury. If you are unable to obtain follow up care and continue to have a problem, or if your condition worsens, we recommend that you return to the ED. 2. We are not able to safely determine your condition over the phone nor are we able to give sound medical advice over the phone. For these safety reasons, if you call for medical advice we will ask you to come to the ED for further evaluation. 3. If you have any questions regarding these discharge instructions please call the ED at [phone]. SAFETY INFORMATION: In the interest of safety, wellness, and injury prevention; we encourage you to wear your sealbelt, if you smoke; quite smoking, and we encourage family to use a protective helmet for bicycling and other sporting events that present an increased risk for head injury. IF YOUR SYMPTOMS WORSEN OR NEW SYMPTOMS DEVELOP, OR YOU HAVE CONCERNS ABOUT YOUR CONDITION; OR IF YOUR CONDITION WORSENS WHILE YOU ARE WAITING FOR YOUR FOLLOW UP APPOINTMENT; EITHER CONTACT YOUR PRIMARY CARE DOCTOR, THE PHYSICIAN WHOSE NAME AND NUMBER YOU WERE GIVEN, OR RETURN TO THE ED IMMEDIATELY. Scripts Nystatin/Triamcin (NYSTATIN-TRIAMCINOLONE CREAM) 15 Gm Cream..g. 1 SEAN TP BID for 10 Days, #15 GM 1 Refill Prov: MARCELINA JAIME MD 07/30/20 Cephalexin (CEPHALEXIN) 500 Mg Capsule 1 CAP PO QID for 7 Days, #28 CAP Prov: MARCELINA JAIME MD 07/30/20 Problem Qualifiers MARCELINA JAIME MD Jul 30, 2020 02:13
[2020-07-30] MEDS ORDERED: FLUCONAZOLE 100 MG TABLET. PO ONE (02:15)
[2020-07-30 02:29] VITALS: BP 153/94
== END 2020-07-30 02:36 | disposition home or self-care (01) ==
LOC: ER 00:34
DX: N39.0 Urinary tract infection, site not specified (principal); B37.3 Candidiasis of vulva and vagina; R10.2 Pelvic and perineal pain; R30.0 Dysuria; R20.8 Other disturbances of skin sensation; F32.9 Major depressive disorder, single episode, unspecified; K21.9 Gastro-esophageal reflux disease without esophagitis; E78.00 Pure hypercholesterolemia, unspecified; I10 Essential (primary) hypertension; Z88.8 Allergy status to other drugs, medicaments and biological substances; Z88.6 Allergy status to analgesic agent
CPT/HCPCS: 81001; 99284